=== PATIENT | female | born 1945 | race Caucasian/White ===

== ENCOUNTER → 2020-05-27 | Outpatient (CLI) | payer MEDICARE, OTHER ==
[~2020-05-27] MED LIST: AMLO10TA8 PO; ANAS1TAB49 PO; ATEN25TA PO; ATEN50TA41 PO; CALC1CAP8 PO; CHOL20002 PO; ETAN50PE SC; FENO134C PO; FESO8TAB PO; Folic Acid PO; METH2TAB PO; METH4TAB PO; OLME20TA17 PO
== END | disposition home or self-care (01) ==
LOC: STAR 13:40
PROVIDERS: ATTEND Surgery
DX: Z01.812 Encounter for preprocedural laboratory examination (principal); Z20.828 Contact with and (suspected) exposure to other viral communicable diseases; C50.811 Malignant neoplasm of overlapping sites of right female breast; I51.7 Cardiomegaly
CPT/HCPCS: 36415; 87635; 93005

== ENCOUNTER 2020-05-31 09:35 | Day surgery (SDC) | payer MEDICARE, OTHER ==
[~2020-05-31] VITALS: Ht 149.9 cm; Wt 52.4 kg
[2020-05-31] MEDS ORDERED: CHLORHEXIDINE 15 ML UDC MM STA (10:14)
[2020-05-31] MEDS ORDERED: LACTATED RINGERS 1,000 ML IV SCH (10:14)
[2020-05-31 10:16] VITALS: BP 156/83
[2020-05-31] MEDS ORDERED: FENTANYL PF 100 MCG/2ML ONE ×2 (13:55→15:37)
[2020-05-31] MEDS ORDERED: ISOSULFAN BLUE 10 MG/ML, 5ML IV ONE (14:14)
[2020-05-31] MEDS ORDERED: BUPIVACAINE/PF 0.5% INFIL ONE (14:15)
[2020-05-31] MEDS ORDERED: EPINEPHRINE 1 MG/ML, 1ML INFIL ONE (14:16)
[2020-05-31] MEDS ORDERED: LABETALOL 5MG/ML, 20ML IV PRN (14:30)
[2020-05-31] MEDS ORDERED: OXYcodone 5 MG/5 ML ORAL.SOL UDC PO PRN (14:30)
[2020-05-31] MEDS ORDERED: ACETAMINOPHEN 325 MG TABLET PO PRN (14:30)
[2020-05-31] MEDS ORDERED: DIAZEPAM 5 MG/ML, 2ML IVPush PRN (14:30)
[2020-05-31] MEDS ORDERED: hydrALAzine 20 MG/ML, 1ML IV PRN (14:30)
[2020-05-31] MEDS ORDERED: KETOROLAC 30 MG/1 ML IV PRN (14:30)
[2020-05-31] MEDS ORDERED: ALBUTEROL SULFATE 2.5 MG/3 ML NPPB PRN (14:30)
[2020-05-31] MEDS ORDERED: HYDROmorphone 2 MG/ML, 1ML IVPush PRN (14:30)
[2020-05-31] MEDS ORDERED: PROMETHAZINE 25 MG/ML, 1ML IV PRN (14:30)
[2020-05-31] MEDS ORDERED: MEPERIDINE/PF 25MG/0.5ML IVPush PRN (14:30)
[2020-05-31] MEDS ORDERED: CEFAZOLIN 1,000 MG ONE (14:41)
[2020-05-31] MEDS ORDERED: SUCCINYLCHOLINE 20 MG/ML, 10ML ONE (14:41)
[2020-05-31] MEDS ORDERED: ONDANSETRON 2MG/ML, 2ML ONE (14:41)
[2020-05-31] MEDS ORDERED: GLYCOPYRROLATE 0.2MG/1ML, 5ML ONE (14:41)
[2020-05-31] MEDS ORDERED: DEXAMETHASONE 4 MG/ML, 1ML ONE (14:41)
[2020-05-31] MEDS ORDERED: PROPOFOL 10 MG/ML, 20ML ONE (14:41)
[2020-05-31] MEDS ORDERED: ROCURONIUM 10MG/ML,5ML ONE (14:41)
[2020-05-31] MEDS ORDERED: NEOSTIGMINE 1 MG/ML, 10ML ONE (14:41)
[2020-05-31] MEDS ORDERED: SUGAMMADEX 200 MG/2 ML IVPush ONE (14:42)
[2020-05-31] MEDS ORDERED: OXYcodone 5 MG/5 ML ORAL.SOL UDC ONE (15:37)
[2020-05-31] MEDS ORDERED: ACETAMINOPHEN 650 MG/20.3 ML UDC ONE (15:37)
[2020-05-31] MEDS: FENTANYL PF 100 MCG/2ML IV PRN ×2 (15:49→15:55)
== END 2020-05-31 17:30 | disposition home or self-care (01) ==
LOC: OUT 09:35
PROVIDERS: ATTEND Surgery
DX: C50.411 Malignant neoplasm of upper-outer quadrant of right female breast (principal); I10 Essential (primary) hypertension; E78.5 Hyperlipidemia, unspecified; M06.9 Rheumatoid arthritis, unspecified; Z17.0 Estrogen receptor positive status [ER+]; Z79.899 Other long term (current) drug therapy; Z87.891 Personal history of nicotine dependence; Z91.040 Latex allergy status; Z92.3 Personal history of irradiation; Z90.49 Acquired absence of other specified parts of digestive tract; Z96.653 Presence of artificial knee joint, bilateral; Z98.890 Other specified postprocedural states
CPT/HCPCS: 19303; 38525; 38792; 88305; 88307; A9541; C1729; C9898; J0171; J0690; J1100; J2405; J2704; J2710; J3010; J7120; J0330